=== PATIENT | female | born 1990 | race Caucasian/White ===

== ENCOUNTER 2023-07-23 21:29 | Observation (INO) ==
[2023-07-23 22:34] LABS: ABS Basophils 0.1 10^3/uL (0.0-0.1); ABS Eosinophils 0.2 10^3/uL (0.0-0.5); ABS Lymphocytes 2.7 10^3/uL (1.0-4.8); ABS Monocytes 0.5 10^3/uL (0.0-0.9); ABS Neutrophils 5.2 10^3/uL (1.5-7.6); ABS Nucleated RBC 0.02 10^3/ul; Eosinophil % 1.9 %; Hematocrit 34.2 % (35-45); Hemoglobin 12.1 g/dL (11.5-14.3); Lymphocyte % 31.6 %; Mean Corpuscular Hgb Conc 35.4 g/dL (31-36); Mean Corpuscular Volume 93.2 fL (80-97); Mean Platelet Volume 7.1 fL (7.5-11.2); Nucleated Red Blood Cells % 0.2 %/100WBC (0.0-0.8); Platelet Count 335 10^3/uL (150-450); Red Blood Count 3.66 10^6/uL (3.63-4.92); Red Cell Distribution Width 13.2 % (12-17); White Blood Count 8.7 10^3/uL (3.8-11.8)
[2023-07-23] MEDS: Ondansetron 4 mg VIAL 2 MG/ML 2 ml VIAL IV ONE (22:45)
[2023-07-23] MEDS ORDERED: Morphine 2 MG/ML SYRINGE IV PRN (23:15)
[2023-07-23] MEDS ORDERED: NS 0.9% 1000 ml BAG 1,000 ML IV SCH (23:15)
[2023-07-23 23:20] LABS: ALT 12 U/L (7-52); AST 14 U/L (13-39); Albumin 3.9 g/dL (3.2-5.2); Albumin/Globulin Ratio 1.8 (1-3); Alkaline Phosphatase 28 U/L (35-149); Anion Gap 8 mmol/L (2-16); Blood Urea Nitrogen 11 mg/dL (6-24); C Reactive Protein 5.88 mg/L (<8.01); CO2 Carbon Dioxide 25 mmol/L (22-32); Calcium 8.7 mg/dL (8.6-10.3); Chloride 108 mmol/L (101-111); Creatinine, Serum 0.76 mg/dL (0.51-0.95); Globulin 2.2 g/dL (2-4); Glucose 91 mg/dL (70-100); Lipase < 10 U/L (11.0-82.0); Sodium 141 mmol/L (135-145); Total Bilirubin 0.6 mg/dL (0.2-1.0); Total Protein 6.1 g/dL (6.4-8.9); eGFR CKD-EPI 107.4 (>60)
[2023-07-24] MEDS: NS 0.9% 1000 ml BAG 1,000 ML IV SCH (01:08)
[2023-07-24] MEDS: HYDROmorphone 0.5 MG/0.5 ML SYRINGE IV ONE (01:38)
[2023-07-24] MEDS ORDERED: Morphine 2 MG/ML SYRINGE IV PRN (03:31)
[2023-07-24 03:52] LABS: ABS Basophils 0.1 10^3/uL (0.0-0.1); ABS Eosinophils 0.2 10^3/uL (0.0-0.5); ABS Lymphocytes 2.9 10^3/uL (1.0-4.8); ABS Monocytes 0.5 10^3/uL (0.0-0.9); ABS Neutrophils 4.4 10^3/uL (1.5-7.6); ABS Nucleated RBC 0.01 10^3/ul; Eosinophil % 2.8 %; Hemoglobin 11.5 g/dL (11.5-14.3); Lymphocyte % 35.7 %; Mean Corpuscular Hemoglobin 32.6 pg (27-33); Mean Corpuscular Hgb Conc 34.7 g/dL (31-36); Mean Corpuscular Volume 93.7 fL (80-97); Mean Platelet Volume 7.5 fL (7.5-11.2); Nucleated Red Blood Cells % 0.1 %/100WBC (0.0-0.8); Platelet Count 303 10^3/uL (150-450); Red Blood Count 3.52 10^6/uL (3.63-4.92); Red Cell Distribution Width 13.2 % (12-17); White Blood Count 8.1 10^3/uL (3.8-11.8)
[2023-07-24] MEDS ORDERED: cefTRIAXone 1 gm/50 mL D5W 1 GM/50 ML BAG IV SCH (04:00)
[2023-07-24] MEDS ORDERED: metroNIDAZOLE IV 500 MG/100ML 500 MG/100 ML BAG IVPB SCH (04:00)
[2023-07-24 04:06] LABS: Calcium 8.5 mg/dL (8.6-10.3); Creatinine, Serum 0.83 mg/dL (0.51-0.95); Potassium 4.1 mmol/L (3.5-5.0); eGFR CKD-EPI 96.6 (>60)
[2023-07-24] MEDS: cefTRIAXone 1 gm/50 mL D5W 1 GM/50 ML BAG IV SCH (04:24)
[2023-07-24] MEDS: fentaNYL 100 mcg/2 ml 50 MCG/ML VIAL IV SLOW PU PRN (04:24)
[2023-07-24] MEDS: metroNIDAZOLE IV 500 MG/100ML 500 MG/100 ML BAG IVPB SCH (05:11)
[2023-07-24] MEDS: Acetaminophen IV 1 GM/100ML 1,000 MG/100 ML BAG IV SCH (06:22)
[2023-07-24] MEDS: HYDROmorphone 0.5 MG/0.5 ML SYRINGE IV SLOW PU PRN (06:23)
[2023-07-24] MEDS ORDERED: Propofol 10 MG/ML 20 ML BTL ONE (08:21)
[2023-07-24] MEDS ORDERED: Glycopyrrolate IV 0.2 MG/ML 1 ML VIAL ONE (08:21)
[2023-07-24] MEDS ORDERED: Dexamethasone IV 4 MG/ML VIAL 1 ml VIAL ONE (08:21)
[2023-07-24] MEDS ORDERED: Ondansetron 4 mg VIAL 2 MG/ML 2 ml VIAL ONE ×2 (08:21→11:14)
[2023-07-24] MEDS ORDERED: Bupivacaine 0.5% SDV PF 30ML VIAL ONE (08:22)
[2023-07-24] MEDS ORDERED: Lidocaine 2% PF 5 ML VIAL ONE (08:22)
[2023-07-24] MEDS ORDERED: fentaNYL 100 mcg/2 ml 50 MCG/ML VIAL ONE ×3 (08:23→12:25)
[2023-07-24] MEDS ORDERED: Midazolam 2 mg/2 ml VIAL 1 mg/ml 2 ml VIAL (2 mg) ONE (08:25)
[2023-07-24] MEDS ORDERED: Rocuronium 50 mg VIAL 10 mg/ml 5 ml VIAL (50 mg) ONE (08:49)
[2023-07-24] MEDS ORDERED: HYDROmorphone 0.5 MG/0.5 ML SYRINGE ONE (09:32)
[2023-07-24] MEDS ORDERED: Naloxone 0.4 mg VIAL 0.4 mg/ml 1 ml VIAL IV PRN (10:37)
[2023-07-24] MEDS ORDERED: Metoclopramide 5 MG/ML VIAL (10 mg) ONE (11:14)
[2023-07-24] MEDS: Metoclopramide 5 MG/ML VIAL (10 mg) IV SLOW PU ONE (11:18)
[2023-07-24] MEDS: fentaNYL 100 mcg/2 ml 50 MCG/ML VIAL IV PRN (11:19)
[2023-07-24] MEDS: Ondansetron 4 mg VIAL 2 MG/ML 2 ml VIAL IV PRN (11:22)
[2023-07-24] MEDS ORDERED: HYDROmorphone 1 MG/1 ML SYRINGE ONE (12:32)
[2023-07-24] MEDS: HYDROmorphone 1 MG/1 ML SYRINGE IV PRN (12:39)
[2023-07-24 13:45] VITALS: BP 117/64
== END 2023-07-24 13:44 | disposition home or self-care (01) ==
LOC: EDHOLD 21:29 → ED 21:29 → SSU 23:43
PROVIDERS: ADMIT Internal Medicine; ATTEND Internal Medicine

== ENCOUNTER 2023-07-24 19:20 | Observation (INO) ==
[2023-07-24] MEDS: HYDROmorphone 0.5 MG/0.5 ML SYRINGE IV SLOW PU ONE (19:47)
[2023-07-24] MEDS: Ondansetron 4 mg VIAL 2 MG/ML 2 ml VIAL IV ONE (19:48)
[2023-07-24] MEDS: NS 0.9% 1000 ml BAG 1,000 ML IV ONE (19:49)
[2023-07-24 19:57] LABS: ABS Basophils 0.1 10^3/uL (0.0-0.1); ABS Lymphocytes 0.7 10^3/uL (1.0-4.8); ABS Monocytes 0.6 10^3/uL (0.0-0.9); ABS Neutrophils 14.2 10^3/uL (1.5-7.6); Hemoglobin 11.9 g/dL (11.5-14.3); Lymphocyte % 4.4 %; Mean Corpuscular Hemoglobin 31.9 pg (27-33); Mean Platelet Volume 7.3 fL (7.5-11.2); Platelet Count 305 10^3/uL (150-450); Red Blood Count 3.72 10^6/uL (3.63-4.92); Red Cell Distribution Width 13.2 % (12-17); White Blood Count 15.6 10^3/uL (3.8-11.8)
[2023-07-24 20:25] LABS: ALT 16 U/L (7-52); AST 25 U/L (13-39); Albumin 3.9 g/dL (3.2-5.2); Albumin/Globulin Ratio 1.8 (1-3); Alkaline Phosphatase 29 U/L (35-149); Anion Gap 9 mmol/L (2-16); Blood Urea Nitrogen 10 mg/dL (6-24); CO2 Carbon Dioxide 26 mmol/L (22-32); Calcium 8.6 mg/dL (8.6-10.3); Chloride 103 mmol/L (101-111); Creatinine, Serum 0.86 mg/dL (0.51-0.95); Globulin 2.2 g/dL (2-4); Glucose 123 mg/dL (70-100); Lipase < 10 U/L (11.0-82.0); Sodium 138 mmol/L (135-145); Total Protein 6.1 g/dL (6.4-8.9); eGFR CKD-EPI 92.6 (>60)
[2023-07-24] MEDS: Droperidol 5 MG/2 ML 2 ML VIAL IV ONE (20:45)
[2023-07-24] MEDS: Acetaminophen IV 1 GM/100ML 1,000 MG/100 ML BAG IV ONE (20:46)
[2023-07-24] MEDS: HYDROmorphone 1 MG/1 ML SYRINGE IV ONE ×2 (20:51→22:09)
[2023-07-24] MEDS: Iohexol 350 (CONTRAST) 500 ML MDV IV ONE (22:38)
[2023-07-24 22:51] LABS: HCG Pregnancy < 0.60 mIU/mL
[2023-07-25] MEDS ORDERED: Calcium Carb (TUMS) 500 mg CHEW TAB PO PRN (00:36)
[2023-07-25] MEDS ORDERED: Lactated Ringers 1000 ml BAG 1,000 ML IV SCH (01:00)
[2023-07-25] MEDS: Ondansetron 4 mg VIAL 2 MG/ML 2 ml VIAL IV PRN (01:37)
[2023-07-25 01:40] LABS: Urine Specific Gravity > 1.060 (1.002-1.030)
[2023-07-25 01:42] LABS: Urine Appearance Turbid; Urine Bacteria Absent /HPF (Absent); Urine Bilirubin Negative (Negative); Urine Blood Trace (Negative); Urine Color Yellow; Urine Glucose Negative (Negative); Urine Ketones Trace (Negative); Urine Nitrite Negative (Negative); Urine Protein Trace (Negative); Urine Red Blood Cell Absent /HPF (0-Trace); Urine Squamous Epithelial Cell Present /HPF (Absent); Urine Urobilinogen Negative (Negative); Urine White Blood Cell 1+(6-10/hpf) /HPF (0-Trace)
[2023-07-25] MEDS: HYDROmorphone 1 MG/1 ML SYRINGE IV SLOW PU PRN (02:40)
[2023-07-25 10:33] LABS: ABS Eosinophils 0.1 10^3/uL (0.0-0.5); ABS Lymphocytes 1.7 10^3/uL (1.0-4.8); ABS Monocytes 0.6 10^3/uL (0.0-0.9); ABS Neutrophils 7.5 10^3/uL (1.5-7.6); Lymphocyte % 17.4 %; Mean Corpuscular Hemoglobin 33.5 pg (27-33); Mean Corpuscular Hgb Conc 35.5 g/dL (31-36); Mean Corpuscular Volume 94.3 fL (80-97); Mean Platelet Volume 7.3 fL (7.5-11.2); Platelet Count 248 10^3/uL (150-450); Red Blood Count 3.28 10^6/uL (3.63-4.92); Red Cell Distribution Width 13.1 % (12-17)
[2023-07-25] MEDS: D5W 1/2 NS 1000 ml BAG 1,000 ML IV SCH (11:03)
[2023-07-25 12:05] LABS: Albumin 3.4 g/dL (3.2-5.2); Albumin/Globulin Ratio 1.8 (1-3); Calcium 8.2 mg/dL (8.6-10.3); Creatinine, Serum 0.72 mg/dL (0.51-0.95); Globulin 1.9 g/dL (2-4); Potassium 3.7 mmol/L (3.5-5.0); Total Bilirubin 1.5 mg/dL (0.2-1.0); Total Protein 5.3 g/dL (6.4-8.9); eGFR CKD-EPI 114.6 (>60)
[2023-07-26] MEDS: Metoclopramide 5 MG/ML VIAL (10 mg) IV PRN (06:40)
[2023-07-26] MEDS: Polyethylene Glycol 3350 17 GM PACKET PO SCH (21:19)
[2023-07-27] MEDS: Senna TAB 8.6 mg TAB PO PRN (07:34)
[2023-07-27 10:06] VITALS: BP 129/70
== END 2023-07-27 12:15 | disposition home or self-care (01) ==
LOC: ED 19:20 → INTOOBSV 07-25 00:39 → EDHOLD 07-25 00:39 → SSU 07-25 01:46
PROVIDERS: ADMIT Surgery Surgical Critical Care; ATTEND Surgery Surgical Critical Care